=== PATIENT | female | born 1985 | race Caucasian/White ===

== ENCOUNTER 2020-09-25 07:30 | Inpatient (IN) ==
[2020-11-08] MEDS ORDERED: Buffered Lidocaine 1% SYRIN 1 ml INTRADERM ONE (06:00)
[2020-11-08] MEDS ORDERED: Lactated Ringers 1000 ml BAG 1,000 ML IV SCH (06:00)
[2020-11-08] MEDS ORDERED: Sodium Citrate/Citric Acid LIQ 15 ML UDC PO ONE (06:00)
[2020-11-08] MEDS ORDERED: Bupivacaine 0.25% SDV 30 ML ONE (06:54)
[2020-11-08] MEDS ORDERED: Methylene Blue 0.5 % 50 MG/10 ML AMP IV ONE (06:54)
[2020-11-08] MEDS ORDERED: Sodium Citrate/Citric Acid LIQ 15 ML UDC ONE (06:55)
[2020-11-08] MEDS ORDERED: ceFAZolin 2 GM PREMIX 2 GM/50 ML BAG ONE (06:55)
[2020-11-08] MEDS ORDERED: ceFAZolin 1 GM ADVAN 1 GM ADDV.VIAL IVPB ONE (06:56)
[2020-11-08] MEDS ORDERED: Heparin 5000 UNITS/ML 1 mL VIAL ONE (06:58)
[2020-11-08] MEDS ORDERED: fentaNYL 250 mcg/5 ml 50 MCG/ML 5 ml VIAL (250 MCG) ONE (07:11)
[2020-11-08] MEDS ORDERED: Propofol 10 MG/ML 20 ML BTL ONE ×2 (07:11→08:47)
[2020-11-08] MEDS ORDERED: Dexamethasone IV 4 MG/ML VIAL 1 ml VIAL ONE (07:11)
[2020-11-08] MEDS ORDERED: Lidocaine 2% PF 5 ML VIAL ONE (07:11)
[2020-11-08] MEDS ORDERED: Ondansetron 4 mg VIAL 2 MG/ML 2 ml VIAL ONE ×2 (07:11→10:32)
[2020-11-08] MEDS ORDERED: Midazolam 2 mg/2 ml VIAL 1 mg/ml 2 ml VIAL (2 mg) ONE (07:11)
[2020-11-08] MEDS ORDERED: Rocuronium 50 mg VIAL 10 mg/ml 5 ml VIAL (50 mg) ONE (07:15)
[2020-11-08] MEDS ORDERED: Naloxone 0.4 mg VIAL 0.4 mg/ml 1 ml VIAL IV PRN (08:11)
[2020-11-08] MEDS ORDERED: Ondansetron 4 mg VIAL 2 MG/ML 2 ml VIAL IV PRN ×2 (08:11→10:26)
[2020-11-08] MEDS ORDERED: diPHENhydraMINE IV 50 MG/ML 1 ml VIAL (BENADRYL) IV PRN (08:11)
[2020-11-08] MEDS ORDERED: DiMENhydriNATE IV 50 mg/ml 1 ml VIAL IV PUSH PRN (08:11)
[2020-11-08] MEDS ORDERED: HYDROmorphone 1 MG/1 ML SYRINGE IV PRN (08:11)
[2020-11-08] MEDS ORDERED: Acetaminophen IV 1 GM/100ML 1,000 MG/100 ML VIAL IVPB PRN (08:11)
[2020-11-08] MEDS ORDERED: HYDROmorphone 1 MG/1 ML SYRINGE ONE (08:56)
[2020-11-08] MEDS ORDERED: Sugammadex 500 MG/5 ML 5 ml VIAL IV PUSH ONE (09:01)
[2020-11-08] MEDS ORDERED: Remifentanil 2 MG VIAL ONE (09:23)
[2020-11-08] MEDS ORDERED: Phenylephrine 40 mcg/mL 10mL (400mcg) SYRINGE ONE (09:33)
[2020-11-08] MEDS ORDERED: EPHEDrine (Pressors) 50 MG/ML VIAL ONE (09:40)
[2020-11-08] MEDS ORDERED: Sterile Water for Inj 10 ML ONE (09:40)
[2020-11-08] MEDS ORDERED: HYDROcodone/ACET. 7.5/325 LIQ 15 ML UDC PO PRN (10:26)
[2020-11-08] MEDS ORDERED: Albuterol/Ipratropium NEB.SOL (2.5/0.5 MG) 3 ML NEB.SOLN INH PRN (10:31)
[2020-11-08] MEDS ORDERED: fentaNYL 100 mcg/2 ml 50 MCG/ML VIAL ONE (10:37)
[2020-11-08] MEDS ORDERED: Acetaminophen IV 1 GM/100ML 100 ML ONE (10:37)
[2020-11-08] MEDS: fentaNYL 100 mcg/2 ml 50 MCG/ML VIAL IV PRN ×4 (10:38→11:07)
[2020-11-08] MEDS ORDERED: Metoprolol Tartrate 5 mg VIAL 5 ml VIAL (1 mg/ml) IV PRN (10:56)
[2020-11-08] MEDS ORDERED: DiMENhydriNATE IV 50 mg/ml 1 ml VIAL ONE (11:09)
[2020-11-08] MEDS: Lactated Ringers 1000 ml BAG 1,000 ML IV SCH ×2 (12:06→18:39)
[2020-11-08] MEDS: HYDROmorphone 0.5 MG/0.5 ML SYRINGE IV SLOW PU PRN ×3 (13:01→21:13)
[2020-11-08] MEDS: Famotidine IV 10 MG/ML 2 ml VIAL (20 mg) IV SLOW PU SCH (21:08)
[2020-11-08] MEDS: Heparin 5000 UNITS/ML 1 mL VIAL SUBCUT SCH (21:25)
[2020-11-09] MEDS: Lactated Ringers 1000 ml BAG 1,000 ML IV SCH ×2 (00:46→08:59)
[2020-11-09 05:51] LABS: Hematocrit 39 % (35-47); Hemoglobin 13.2 g/dL (12.0-16.0); Mean Corpuscular HGB Conc 34 g/dL (31-36); Mean Corpuscular Hemoglobin 32 pg (27-31); Mean Corpuscular Volume 94 fL (80-97); Mean Platelet Volume 8.2 fL (7.4-10.4); Platelet Count 226 10^3/uL (150-450); Red Cell Distribution Width 14 % (10-15); White Blood Count 11.6 10^3/uL (3.5-10.8)
[2020-11-09] MEDS: Heparin 5000 UNITS/ML 1 mL VIAL SUBCUT SCH ×3 (06:04→23:48)
[2020-11-09] MEDS ORDERED: Influenza VAC *QUAD* 2020-21* 0.5 ML SYRINGE IM ONE (09:00)
[2020-11-09] MEDS: Famotidine IV 10 MG/ML 2 ml VIAL (20 mg) IV SLOW PU SCH ×2 (09:04→20:46)
[2020-11-09] MEDS: D5W 1/2 NS KCl 20 meq 1000 ml 1,000 ML IV SCH ×2 (11:32→19:56)
[2020-11-10] MEDS: D5W 1/2 NS KCl 20 meq 1000 ml 1,000 ML IV SCH (04:54)
[2020-11-10] MEDS: Heparin 5000 UNITS/ML 1 mL VIAL SUBCUT SCH (05:45)
[2020-11-10 08:54] VITALS: BP 128/86
[2020-11-10] MEDS: Famotidine IV 10 MG/ML 2 ml VIAL (20 mg) IV SLOW PU SCH (09:02)
== END 2020-11-10 11:20 | disposition home or self-care (01) | DRG 621 ==
LOC: AA 11-08 06:04 → SSU 11-08 11:53
PROVIDERS: ADMIT Surgery; ATTEND Surgery